=== PATIENT | female | born 1985 | race Caucasian/White ===

== ENCOUNTER 2016-12-18 09:36 | Emergency (ER) | payer OTHER ==
[2016-12-18 09:44] VITALS: BP 113/78
== END 2016-12-18 10:40 | disposition left against medical advice (07) ==
LOC: ED 09:36
DX: Z53.21 Procedure and treatment not carried out due to patient leaving prior to being seen by health care provider (principal)
CPT/HCPCS: 99282

== ENCOUNTER 2018-04-21 10:22 | Emergency (ER) | payer OTHER ==
[2018-04-21 12:37] LABS: BASOPHILS % (AUTO) 0.4 %; EOSINOPHILS # (AUTO) 0.1 10^3/uL (0.0-0.7); EOSINOPHILS % (AUTO) 0.7 %; HGB - HEMOGLOBIN 14.4 g/dL (12.0-16.0); LYMPHOCYTES # (AUTO) 1.4 10^3/uL (1.5-3.5); LYMPHOCYTES % (AUTO) 15.2 %; MEAN CORPUSCULAR HEMOGLOBIN 32.7 pg (27.0-31.0); MEAN CORPUSCULAR HGB CONC 34.6 g/dL (32.0-36.0); MEAN CORPUSCULAR VOLUME 94.6 fL (81.0-99.0); MEAN PLATELET VOLUME 8.9 fL (7.9-10.8); MONOCYTES # (AUTO) 0.5 10^3/uL (0.0-1.0); MONOCYTES % (AUTO) 5.9 %; NEUTROPHILS # (AUTO) 7.3 10^3/uL (1.5-6.6); NEUTROPHILS % (AUTO) 77.8 %; PLT - PLATELET COUNT 178 10^3/uL (130-450); RED BLOOD COUNT 4.39 10^6/uL (4.20-5.40); RED CELL DISTRIBUTION WIDTH 13.3 % (12.0-15.0); WHITE BLOOD COUNT 9.3 x10^3/uL (4.8-10.8)
[2018-04-21 12:52] LABS: ALBUMIN 4.2 g/dL (3.2-5.5); ALBUMIN/GLOBULIN RATIO 1.6 (1.0-2.2); BILIRUBIN,TOTAL 0.4 mg/dL (0.2-1.0); CALCIUM 9.1 mg/dL (8.5-10.3); CREATININE 0.8 mg/dL (0.4-1.0); TOTAL PROTEIN 6.9 g/dL (6.7-8.2)
[2018-04-21 14:22] LABS: BILIRUBIN,URINE NEGATIVE (NEGATIVE); GLUCOSE, URINE (UA) NEGATIVE (NEGATIVE); KETONES,URINE (UA) NEGATIVE (NEGATIVE); LEUKOCYTE ESTERASE, URINE NEGATIVE (NEGATIVE); NITRITE,URINE NEGATIVE (NEGATIVE); OCCULT BLOOD,URINE LARGE (NEGATIVE); PROTEIN,URINE NEGATIVE (NEGATIVE); UROBILINOGEN,URINE 0.2 (NORMAL) E.U./dL (NORMAL)
[2018-04-21 14:27] LABS: CLARITY,URINE CLOUDY (CLEAR); HCG UR QUAL NEGATIVE
[2018-04-21] MEDS ORDERED: PHENAZOPYRIDINE 100 MG TABLET PO STA (14:28)
[2018-04-21] MEDS ORDERED: IBUPROFEN 400 MG TABLET PO STA (14:28)
[2018-04-21] MEDS ORDERED: ACETAMINOPHEN 325 MG TABLET PO STA (14:28)
--- NOTE | 2018-04-21 14:31 | ED Physician Documentation ---
History of Present Illness - Stated complaint Stated Complaint: L SIDE ABD [id number] - Chief complaint Chief Complaint: Abd Pain - Additonal information Additional information: hx from pt 32 f denies preg to ED with a few weeks of dysuria and now L mid abd pain no fever no NV some diarrhea s blood no vag bleed no vag dc LMP 1.5 wk ago Review of Systems Constitutional: denies: Fever Cardiac: denies: Chest pain / pressure GI: reports: Abdominal Pain : reports: Dysuria, LMP (1.5 wk). denies: Discharge, Vaginal bleeding, Now EGA Musculoskeletal: reports: Back pain (L CVA) PD PAST MEDICAL HISTORY - Past Surgical History Past Surgical History: No - Present Medications Home Medications: Ambulatory Orders Medication Instructions Recorded Confirmed HYDROcod/ACETAM 5/325 [[place] 5/325] 1 ea PO Q6H PRN #10 tablet 04/21/18 Ibuprofen [Motrin] 400 mg PO Q6H PRN #30 tablet 04/21/18 Promethazine [Phenergan] 25 mg PO Q6H PRN #10 tablet 04/21/18 Tamsulosin [Flomax] 0.4 mg PO DAILY #7 capsule 04/21/18 - Allergies Allergies/Adverse Reactions: Allergies Allergy/AdvReac Type Severity Reaction Status Date / Time No Known Drug Allergies Allergy Verified 04/21/18 10:43 - Social History Does the pt smoke?: Yes Smoking Status: Current every day smoker - Immunizations Immunizations are current?: No Immunizations: TDAP >10years/unknown PD ED PE NORMAL - Vitals Vital signs reviewed: Yes - Cardiac Cardiac: RRR - Respiratory Respiratory: No respiratory distress - Abdomen Abdomen: Soft, Other (mild TTP mid L abd) - Back Back: No CVA TTP - Derm Derm: Normal color - Neuro Neuro: Alert and oriented X 3 Results - Vitals Vitals: Vital Signs - 24 hr 04/21/18 04/21/18 10:38 14:21 Temperature 36.3 C L Heart Rate 85 81 Respiratory 16 20 Rate Blood Pressure 127/85 H 124/107 H O2 Saturation 97 100 Oxygen O2 Source Room air - Labs Labs: Laboratory Tests 04/21/18 04/21/18 04/21/18 12:29 12:29 14:19 WBC 9.3 RBC 4.39 Hgb 14.4 Hct 41.5 MCV 94.6 MCH 32.7 H MCHC 34.6 RDW 13.3 Plt Count 178 MPV 8.9 Neut # (Auto) 7.3 H Lymph # (Auto) 1.4 L [place] # (Auto) 0.5 Eos # (Auto) 0.1 Baso # (Auto) 0.0 Absolute Nucleated RBC 0.00 Nucleated RBC % 0.0 Sodium 137 Potassium 4.0 Chloride 104 Carbon Dioxide 25 Anion Gap 8.0 BUN 18 Creatinine 0.8 Estimated GFR (MDRD) 82 L Glucose 105 H Calcium 9.1 Total Bilirubin 0.4 AST 21 ALT 16 Alkaline Phosphatase 46 Total Protein 6.9 Albumin 4.2 Globulin 2.7 Albumin/Globulin Ratio 1.6 Lipase 27 Urine Color YELLOW Urine Clarity CLOUDY Urine pH 6.0 Ur Specific [place] 1.020 Urine Protein NEGATIVE Urine Glucose (UA) NEGATIVE Urine Ketones NEGATIVE Urine Occult Blood LARGE H Urine Nitrite NEGATIVE Urine Bilirubin NEGATIVE Urine Urobilinogen 0.2 (NORMAL) Ur Leukocyte Esterase NEGATIVE Urine RBC TNTC H Urine WBC 6-10 H Ur Squamous Epith Cells FEW Squamous Amorphous Sediment Moderate Urine Bacteria Rare Ur Microscopic Review INDICATED Urine Culture Comments INDICATED Urine HCG, Qual 04/21/18 14:19 WBC RBC Hgb Hct MCV MCH MCHC RDW Plt Count MPV Neut # (Auto) Lymph # (Auto) [place] # (Auto) Eos # (Auto) Baso # (Auto) Absolute Nucleated RBC Nucleated RBC % Sodium Potassium Chloride Carbon Dioxide Anion Gap BUN Creatinine Estimated GFR (MDRD) Glucose Calcium Total Bilirubin AST ALT Alkaline Phosphatase Total Protein Albumin Globulin Albumin/Globulin Ratio Lipase Urine Color Urine Clarity Urine pH Ur Specific [place] 1.020 Urine Protein Urine Glucose (UA) Urine Ketones Urine Occult Blood Urine Nitrite Urine Bilirubin Urine Urobilinogen Ur Leukocyte Esterase Urine RBC Urine WBC Ur Squamous Epith Cells Amorphous Sediment Urine Bacteria Ur Microscopic Review Urine Culture Comments Urine HCG, Qual NEGATIVE - Rads (name of study) KUB Radiology: See rad report (c/w 2 mm L UVJ stone) PD MEDICAL DECISION MAKING - Sepsis Event Vital Signs: Vital Signs - 24 hr 04/21/18 04/21/18 10:38 14:21 Temperature 36.3 C L Heart Rate 85 81 Respiratory 16 20 Rate Blood Pressure 127/85 H 124/107 H O2 Saturation 97 100 Oxygen O2 Source Room air Departure - Departure Disposition: 01 Home, Self Care Clinical Impression: Renal colic on left side Condition: Good Instructions: ED Stone Renal W Colic Prescriptions: HYDROcod/ACETAM 5/325 [[place] 5/325] 1 ea PO Q6H PRN #10 tablet PRN Reason: Severe Pain Ibuprofen [Motrin] 400 mg PO Q6H PRN #30 tablet PRN Reason: Pain Promethazine [Phenergan] 25 mg PO Q6H PRN #10 tablet PRN Reason: vomiting Tamsulosin [Flomax] 0.4 mg PO DAILY #7 capsule Comments: You have a 2 mm kidney stone This is small enough to pass on its own without surgery I have presbriebd medications for pain, for nausea, and to help relax the ureter so the stone can pass Please strain your urine until you catch the stone - then save the stone so your PMD can have it tested to see if it is made of calcium or oxalate and based on that info you can adjust your diet to try and prevent more stones from forming If you develop a fever or get worse come back to the ER It does not look like you have an infection, but a culture will be run and the ER will call you if it is positive Forms: Activity restrictions
[2018-04-21 14:41] LABS: AMORPHOUS SEDIMENT,UR Moderate /LPF; BACTERIA,URINE Rare /HPF (None Seen); RBC,URINE TNTC /HPF (0-5); SQUAMOUS EPITHELIAL CELL,UR FEW Squamous (<= Few)
--- NOTE | 2018-04-21 16:31 | XRAY Report ---
Reason: L flank pain hematuria look for stone Procedure Date: 04/21/2018 Accession Number: [id number] / [id number] Procedure: XR - Abdomen 1 View X-Ray CPT Code: 22811 FULL RESULT: EXAM: ABDOMEN RADIOGRAPHY EXAM DATE: 04/21/2018 04:01 PM. CLINICAL HISTORY: Left flank pain and hematuria. Look for stone. COMPARISON: None. TECHNIQUE: 1 view. FINDINGS: Bowel Gas Pattern: Within normal limits. No dilated loops. Other: A 2 mm calcific density projecting over the coccyx just left of midline is identified. IMPRESSION: 2 mm calcific density projecting over the bladder just left of midline represents phlebolith versus UVJ junction calculus. Ultrasound of the bladder locating the left ureteral jet by color ultrasound and evaluating this region with grayscale ultrasound could clarify the finding. RADIA
[2018-04-21 16:42] VITALS: BP 146/123
== END 2018-04-21 16:49 | disposition home or self-care (01) ==
LOC: ED 10:22
DX: N23 Unspecified renal colic (principal); F17.200 Nicotine dependence, unspecified, uncomplicated
CPT/HCPCS: 36415; 74018; 80053; 81001; 81025; 83690; 85025; 87086; 99283; A9270; 81003; 84703

== ENCOUNTER 2018-06-27 18:59 | Emergency (ER) | payer OTHER ==
[2018-06-27 19:32] LABS: GLUCOSE, URINE (UA) NEGATIVE (NEGATIVE); KETONES,URINE (UA) TRACE mg/dL (NEGATIVE); LEUKOCYTE ESTERASE, URINE TRACE (NEGATIVE); NITRITE,URINE NEGATIVE (NEGATIVE); OCCULT BLOOD,URINE LARGE (NEGATIVE); PH,URINE 6.5 PH (5.0-7.5); PROTEIN,URINE 100 mg/dL (NEGATIVE); UROBILINOGEN,URINE 0.2 (NORMAL) E.U./dL (NORMAL)
[2018-06-27 19:38] LABS: BILIRUBIN,URINE NEGATIVE (NEGATIVE); CLARITY,URINE CLOUDY (CLEAR); ICTOTEST,URINE NEGATIVE
[2018-06-27 19:46] LABS: BACTERIA,URINE Few /HPF (None Seen); RBC,URINE TNTC /HPF (0-5); SQUAMOUS EPITHELIAL CELL,UR NONE SEEN (<= Few)
--- NOTE | 2018-06-27 20:46 | ED Physician Documentation ---
PD HPI FEMALE - Stated complaint Stated Complaint: FEMALE - Chief complaint Chief Complaint: Abd Pain - History obtained from History obtained from: Patient - History of Present Illness Timing - onset: How many days ago (1-2) Timing - duration: Days (1-2) Timing - details: Waxing and waning Associated symptoms: Dysuria, Urinary frequency, Hematuria. No: Fever, Vaginal bleeding, Vaginal discharge Contributing factors: No: Exposed to STD Similar symptoms before: Diagnosis (has had small kidney stones in the past. also UTIs in the past.) Recently seen: Not recently seen Review of Systems Constitutional: denies: Fever, Myalgias : reports: Dysuria, Frequency. denies: Discharge, Vaginal bleeding Skin: denies: Rash, Lesions PD PAST MEDICAL HISTORY - Past Medical History Cardiovascular: None Respiratory: None : Kidney stones - Past Surgical History Past Surgical History: No - Present Medications Home Medications: Ambulatory Orders Medication Instructions Recorded Confirmed Docusate Sodium 100 mg PO DAILY #20 capsule 06/27/18 Hydrocodone/Acetaminophen [[place] 1 each PO Q6H PRN #15 tablet 06/27/18 5-325 Tablet] Naproxen 500 mg PO BID #20 tablet 06/27/18 Sulfamethox/Trimeth 800/160 1 each PO BID #14 tablet 06/27/18 [Bactrim Ds 800/160] - Allergies Allergies/Adverse Reactions: Allergies Allergy/AdvReac Type Severity Reaction Status Date / Time No Known Drug Allergies Allergy Verified 06/27/18 19:10 - Social History Does the pt smoke?: Yes Smoking Status: Current every day smoker - Immunizations Immunizations are current?: No Immunizations: TDAP >10years/unknown PD ED PE NORMAL - Vitals Vital signs reviewed: Yes - General General: Alert and oriented X 3, No acute distress, Well developed/nourished - Abdomen Abdomen: Normal bowel sounds, Soft, Non distended, No organomegaly, Other (mildl y tender without guarding left lower abd/suprapubic. ) - Female Female : Deferred - Rectal Rectal: Deferred - Back Back: No CVA TTP - Derm Derm: Normal color, Warm and dry Results - Vitals Vitals: Oxygen O2 Source Room air - Labs Labs: Microbiology 06/27/18 19:20 Urine Culture - Final Urine,Clean Catch >100,000 COLONIES/ML Polymicrobial growth including potential pathogens. This is suggestive of skin or other contamination. Laboratory Tests 06/27/18 19:20 Urine Color LT RED Urine Clarity CLOUDY Urine pH 6.5 Ur Specific [place] 1.025 Urine Protein 100 H Urine Glucose (UA) NEGATIVE Urine Ketones TRACE Urine Occult Blood LARGE H Urine Nitrite NEGATIVE Urine Bilirubin NEGATIVE Urine Urobilinogen 0.2 (NORMAL) Ur Leukocyte Esterase TRACE H Urine RBC TNTC H Urine WBC 6-10 H Ur Squamous Epith Cells NONE SEEN Urine Bacteria Few Ur Microscopic Review INDICATED Urine Culture Comments INDICATED PD MEDICAL DECISION MAKING - ED course Complexity details: reviewed results, considered differential (UTI with the pain and dysuria. COnsider small stone with the left pain, but not really flank as well. ), d/w patient Departure - Departure Disposition: 01 Home, Self Care Clinical Impression: Dysuria, Left sided abdominal pain UTI (urinary tract infection) Qualifiers: Urinary tract infection type: acute cystitis Hematuria presence: with hematuria Qualified Code(s): N30.01 - Acute cystitis with hematuria Condition: Stable Record reviewed to determine appropriate education?: Yes Instructions: ED UTI Cystitis Female Prescriptions: Docusate Sodium 100 mg PO DAILY #20 capsule Hydrocodone/Acetaminophen [[place] 5-325 Tablet] 1 each PO Q6H PRN #15 tablet PRN Reason: Pain Naproxen 500 mg PO BID #20 tablet Sulfamethox/Trimeth 800/160 [Bactrim Ds 800/160] 1 each PO BID #14 tablet Comments: Your symptoms and the urine test would suggest a bladder infection as the cause and there can be blood in the urine often with bladder infections. We will treated with an antibiotic and an anti-inflammatory and see if you improve in the next couple of days. If you were trying to pass a small stone then the anti-inflammatory and some pain medicine would be the treatment anyway. Drink lots of fluids and stay well-hydrated. See how you do over the next few days. Return if not better or if worsening or other symptoms. Discharge Date/Time: 06/27/18 21:33
[2018-06-27] MEDS ORDERED: NAPROXEN 250 MG TABLET PO STA (21:19)
[2018-06-27] MEDS ORDERED: SULFAMETH/TRIMETH DS 800/160 MG TABLET PO STA (21:19)
[2018-06-27 21:31] VITALS: BP 129/83
== END 2018-06-27 21:33 | disposition home or self-care (01) ==
LOC: ED 18:59
DX: R10.32 Left lower quadrant pain (principal); N30.01 Acute cystitis with hematuria; F17.200 Nicotine dependence, unspecified, uncomplicated
CPT/HCPCS: 81001; 87086; 99283; A9270; 81003; 81025

== ENCOUNTER 2023-08-05 08:00 | Outpatient (CLI) | payer OTHER ==
[2023-08-05 12:21] LABS: HCT - HEMATOCRIT 44.4 % (37.0-47.0); HGB - HEMOGLOBIN 14.6 g/dL (12.0-16.0); MEAN CORPUSCULAR HEMOGLOBIN 31.9 pg (27.0-31.0); MEAN CORPUSCULAR HGB CONC 32.9 g/dL (32.0-36.0); MEAN CORPUSCULAR VOLUME 97.2 fL (81.0-99.0); RED BLOOD COUNT 4.57 10^6/uL (4.20-5.40); RED CELL DISTRIBUTION WIDTH 12.4 % (12.0-15.0); WHITE BLOOD COUNT 8.3 x10^3/uL (4.8-10.8)
[2023-08-05 12:50] LABS: CALCIUM 9.2 mg/dL (8.5-10.3); CREATININE 0.6 mg/dL (0.6-1.3); POTASSIUM 4.2 mmol/L (3.5-4.5)
== END 2023-08-05 23:59 | disposition home or self-care (01) ==
LOC: LAB.N 08:00
PROVIDERS: ATTEND Family Medicine
DX: L95.9 Vasculitis limited to the skin, unspecified (principal)
CPT/HCPCS: 36415; 80048; 85027; 85651

== ENCOUNTER 2023-08-05 09:21 | Outpatient (CLI) | payer OTHER ==
--- NOTE | 2023-08-05 16:08 | XRAY Report ---
PROCEDURE: Foot 3+V LT INDICATIONS: LEFT FOOT PAIN TECHNIQUE: 3 views of the foot were acquired. COMPARISON: None. FINDINGS: Bones: No fractures or dislocations. No suspicious bony lesions. Soft tissues: No suspicious soft tissue calcifications or masses. IMPRESSION: No acute bony abnormality. If pain persists with conservative management, consider repeat radiographs in 10-14 days or cross-sectional imaging. No suspicious soft tissue mass lesion. Reviewed by: Kellie Christianson MD on 08/05/2023 4:07 PM [facility] Approved by: Kellie Christianson MD on 08/05/2023 4:07 PM [facility] Station ID: [id number]
== END 2023-08-05 23:59 | disposition home or self-care (01) ==
LOC: DI.N 09:21
PROVIDERS: ATTEND Family Medicine
DX: M79.672 Pain in left foot (principal)

== ENCOUNTER 2023-08-05 18:25 | Outpatient (CLI) | payer OTHER ==
--- NOTE | 2023-08-05 20:45 | Ultrasound Report ---
PROCEDURE: Arterial Duplex Lwr Ext BL INDICATIONS: VASCULITIS OF SKIN TECHNIQUE: Color and pulse Doppler interrogation was performed of both lower extremity arterial systems, with im age documentation. COMPARISON: None FINDINGS: Right lower extremity: Common femoral artery: 129 cm/sec, with triphasic flow. Deep femoral artery: 55 cm/sec, with biphasic flow. Proximal superficial femoral artery: 81 cm/sec, with triphasic flow. Mid superficial femoral artery: 94 cm/sec, with triphasic flow. Distal superficial femoral artery: 63 cm/sec, with triphasic flow. Popliteal artery: 57 cm/sec, with triphasic flow. Posterior tibial artery: 57 cm/sec, with triphasic flow. Anterior tibial artery/dorsalis pedis: 80 cm/sec, with biphasic to triphasic flow. Smith-scale imaging description: Minimal scattered plaque Left lower extremity: Common femoral artery: 138 cm/sec, with triphasic flow. Deep femoral artery: 68 cm/sec, with biphasic to triphasic flow. Proximal superficial femoral artery: 90 cm/sec, with triphasic flow. Mid superficial femoral artery: 66 cm/sec, with triphasic flow. Distal superficial femoral artery: 79 cm/sec, with triphasic flow. Popliteal artery: 57 cm/sec, with biphasic to triphasic flow. Posterior tibial artery: 57 cm/sec, with biphasic to monophasic flow. Anterior tibial artery/dorsalis pedis: 105 cm/sec, with biphasic and monophasic flow. Smith-scale imaging description: Minimal plaque IMPRESSION: No area of significant velocity elevation to suggest high-grade stenosis. However, loss of multiphasi c waveforms are seen in the left calf arteries, suggestive of decreased flow, without occlusion. Reviewed by: Jason Hopkins MD on 08/05/2023 8:44 PM PST Approved by: Jason Hopkins MD on 08/05/2023 8:44 PM PST Station ID: [id number]
== END 2023-08-05 18:26 | disposition home or self-care (01) ==
LOC: DI 18:25
PROVIDERS: ATTEND Family Medicine
DX: L95.9 Vasculitis limited to the skin, unspecified (principal)
CPT/HCPCS: 36415; 80048; 85027; 85651; 93925